=== PATIENT | female | born 1965 | race Caucasian/White ===

== ENCOUNTER 2019-11-16 06:44 | Day surgery (SDC) | payer OTHER ==
[2019-11-16] MEDS ORDERED: SODIUM CHLORIDE 0.9% 1000 ML 1,000 ML IV SCH (07:00)
--- NOTE | 2019-11-16 08:04 | Anesthesia Consultation ---
Anesthesia Consult and Med Hx Date of service: 11/16/19 - Airway Anesthetic Teeth Evaluation: Good, Caps, Bridges ROM Head & Neck: Adequate Mental/Hyoid Distance: Adequate Mallampati Class: Class II Intubation Access Assessment: Probably Good - Pre-Operative Health Status ASA Pre-Surgery Classification: ASA1 Proposed Anesthetic Plan: MAC - Gastrointestinal Hx Gastroesophageal Reflux Disease: Yes (Occasional)
--- NOTE | 2019-11-16 08:04 | Anesthesia Day of Surgery ---
Anesthesia Day of Surgery - Day of Surgery Patient Examined: Yes Patient H&P Reviewed: Yes Patient is NPO: Yes
--- NOTE | 2019-11-16 08:38 | History and Physical Report ---
HISTORY OF PRESENT ILLNESS: This is a 54-year-old white female, who is status post cholecystectomy and status post with tubal ligation. She is not on any medication at present, but does have a family history of cancer. The patient's father had prostate cancer. She has been sent here for evaluation as part of colon polyp screening. In addition, she has been having GERD symptoms and has been advised to have an EGD done along with the colonoscopy, which she is willing to do. ALLERGIES: She has no known allergies. SOCIAL HISTORY: Denies history of smoking or alcohol use. No cardiac issues. No flu shots. PHYSICAL EXAMINATION: GENERAL: She is afebrile. VITAL SIGNS: Blood pressure is 140/74, pulse is 80, height is 5 foot 2 inches, weight is 206 pounds. HEENT: Shows no JVD. LUNGS: Clear to auscultation. CARDIOVASCULAR: Normal. ABDOMEN: Soft. Bowel sounds present. NEUROLOGIC: The patient is alert and oriented. ASSESSMENT: Gastroesophageal reflux disease symptoms, possible esophagitis, colon polyp screening and family history of cancer. Father had prostate cancer, status post cholecystectomy, status post and tubal ligation. PLAN: To do an EGD and a colonoscopy at [facility]. The patient [facility] to use the [facility]. JOB# [id number] HEATHER/UGO
[2019-11-16] MEDS ORDERED: LIDOCAINE MPF (2%) 20 MG/1 ML VIAL 5 ML ONE (09:00)
[2019-11-16] MEDS ORDERED: PROPOFOL 200 MG/20 ML VIAL IV ONE ×2 (09:10)
--- NOTE | 2019-11-16 09:48 | Operative Report ---
PROCEDURE: Esophagogastroduodenoscopy with biopsy. INDICATIONS: A 54-year-old white female who has been having some GERD symptoms. She is status post cholecystectomy as well as status post . DESCRIPTION OF PROCEDURE: Esophagogastroduodenoscopy was done after getting informed consent with MAC anesthesia. Instrument was passed through the hypopharynx into the esophagus, which showed some mild to moderate distal erosive esophagitis. Photo documentation and biopsy was obtained. The stomach showed antral gastritis. No ulcers were noted in the straight or the retroverted view. There was no evidence of any hiatal hernia. The pylorus was patent. The duodenum in the first and second portion appeared normal. Biopsy was done from the second part to rule out for possible celiac disease. Additional biopsy was done from the gastric antrum, gastric body and angular incisura to rule out for H. pylori and atrophic gastritis. There was minimal bleeding associated with the procedure. No complications associated with the procedure. ASSESSMENT: Gastroesophageal reflux disease symptoms, mild to moderate distal erosive esophagitis, gastritis, rule out celiac disease. PLAN: To treat the patient with PPI, have the patient avoid aspirin and aspirin-related products for the next few days and follow up in the office in 1-2 weeks' time. A colonoscopy will also be done as part of colon polyp screening. Procedure was done in the GI lab with assistance of the GI lab team, which included RN, Valencia Early and with assistance of danny De La Garza and also with the assistance of Anesthesia. JOB# [id number] HEATHER/UGO
--- NOTE | 2019-11-16 09:51 | Operative Report ---
PROCEDURE: Colonoscopy. INDICATIONS: A 54-year-old white female with a family history of cancer. The patient's father had prostate cancer. The EGD was done prior to the colonoscopy, which showed [id number] erosive esophagitis and gastritis. Biopsy was also done to rule out for possible celiac disease. The patient will be treated with PPI because of the EGD findings. DESCRIPTION OF PROCEDURE: Colonoscopy was done after getting informed consent with MAC anesthesia. Initial rectal exam was unremarkable. Instrument was passed through the rectum onto the cecum, which was identified by the ileocecal valve and the appendiceal orifice. Visualization was fair to good. The terminal ileum was intubated showed normal mucosa. The cecum was also examined on the retroverted view and showed normal mucosa. The cecum, ascending colon and transverse colon showed normal mucosa. There was moderate diverticular disease noted in the left colon and the rectum showed minor internal hemorrhoid on the retroverted view. There is no bleeding associated with the colonoscopy, no complications associated with this procedure. ASSESSMENT: Colon polyp screening, family history of cancer. The patient's father had prostate cancer, prior history of colon polyps, no colon polyps at present. Moderate left colon diverticular disease, minor internal hemorrhoid. Again, there was no bleeding associated with the procedure. No complications associated with the procedure. PLAN: To encourage the patient to take fiber supplements. The patient will be treated with PPI because of the EGD findings of esophagitis and gastritis. The patient will be asked to avoid aspirin and aspirin-related products for the next 4 days. The biopsies were done during the EGD and to follow up in the office in 1-2 weeks' time. The procedure was done in the GI lab with assistance of the GI lab team, which included RN, Valencia Early and danny De La Garza and with assistance of Anesthesia. JOB# [id number] HEATHER/UGO
--- NOTE | 2019-11-16 09:53 | Procedure Note ---
Date of procedure: 11/16/19 Pre-op diagnosis: GERD/ Colon Polyp Screening/F/H/O Cancer (father-prostate cancer) Post-op diagnosis: other (Mild to Moderate Erosive Esophagitis/Gastritis/ R/O Celiac disease/ No Peptic Ulcer Disease/ No Colon Polyps noted/ Moderate,Left Colon Diverticuli/Minor,Internal Hemorrhoid/ Normal Ileal Mucosa) Procedure: EGD with Biopsy and Colonoscopy Anesthesia: MAC Surgeon: STACEY MORENO Estimated blood loss: minimal Pathology: list Specimen disposition: to lab Condition: stable Disposition: same day (Treat with PPI and encourage fiber intake. Avoid aspirin and NSAID for 4 days; otherwise resume home medication and follow up in 1 to 2 weeks ([phone]).)
[2019-11-16 11:05] VITALS: BP 132/79
--- NOTE | 2019-11-16 11:08 | Post Anesthesia Evaluation ---
- Post Anesthesia Evaluation Patient Participated: Yes Airway Patent: Yes Stable Respiratory Function: Yes Nausea/Vomiting: No Temp > 96.8F: Yes Pain Manageable: Yes Adequeate Hydration: Yes Anesthesia Complications: No Block Receding Appropriately: Not Applicable Patient on Ventilator: No
== END 2019-11-16 06:45 | disposition home or self-care (01) ==
LOC: GIO 06:44
DX: Z12.11 Encounter for screening for malignant neoplasm of colon (principal); K57.30 Diverticulosis of large intestine without perforation or abscess without bleeding; K64.8 Other hemorrhoids; K21.0 Gastro-esophageal reflux disease with esophagitis; K29.50 Unspecified chronic gastritis without bleeding; Z98.891 History of uterine scar from previous surgery; Z98.51 Tubal ligation status; Z80.42 Family history of malignant neoplasm of prostate; Z90.49 Acquired absence of other specified parts of digestive tract; Z98.890 Other specified postprocedural states
CPT/HCPCS: 43239; 45378; 88305; 88342; J2704; J7030